=== PATIENT | male | born 1975 | race Caucasian/White ===

== ENCOUNTER 2017-02-12 23:09 | Emergency (ER) | payer SELFPAY ==
[2017-02-12 23:09] VITALS: BMI 23.4
[2017-02-12 23:16] VITALS: BP 148/93; PULSE 91; RESP 17; TEMP 98.5; O2SAT 96
--- NOTE | 2017-02-12 23:20 | ED PDOC ---
Arrival/HPI - General Time Seen by Provider: 02/12/17 23:16 Historian: Patient - History of Present Illness Narrative History of Present Illness (Text): 02/12/17 23:20 41 y/o male, pmh including pancreatitis, allergic to ciopro and penicillin, stated that he doesn't feel well and he call for the ambulance. Pt. stated that he had a can of beer tonight, doesn't feel well but feeling well now, no homicidal or suicidal ideation, no depression, no change in vision, no numbness or tingling, no rash, no abdominal pain, no chest pain or palpitation, no rash, no other medical or psychological complaints. Past Medical History - Provider Review Nursing Documentation Reviewed: Yes - Infectious Disease Hx of Infectious Diseases: None - Tetanus Immunization Tetanus Immunization: Unknown - Cardiac Hx Hypertension: No - Pulmonary Hx Respiratory Disorders: No - Neurological HX Cerebrovascular Accident: No Hx Seizures: No - HEENT Hx HEENT Disorder: No - Renal Hx Renal Disorder: No - Endocrine/Metabolic Hx Endocrine Disorders: No - Hematological/Oncological Hx Cancer: No Hx Hepatitis B: Yes - Integumentary Hx Dermatological Disorder: No - Musculoskeletal/Rheumatological Hx Musculoskeletal Disorders: No Hx Falls: No - Gastrointestinal Hx Gastrointestinal Disorders: No Hx Colostomy: No Hx Crohn's Disease: No Hx Diverticulitis: No Hx Gall Bladder Disease: No Hx Gastroesophageal Reflux: No Hx Gastrointestinal Ulcer: No Hx Ileostomy: No Hx Liver Failure: No Hx Pancreatitis: Yes HX Swallowing Problems: No - Genitourinary/Gynecological Hx Genitourinary Disorders: No Hx Reproductive Disorders: No - Psychiatric Hx Depression: No Hx Emotional Abuse: No Hx Physical Abuse: No Hx Substance Use: Yes - Surgical History Hx Cardiac Catheterization: No Hx Coronary Stent: No - Suicidal Assessment Feels Threatened In Home Enviroment: No Family/Social History - Physician Review Nursing Documentation Reviewed: Yes Family/Social History: Unknown Family HX Smoking Status: Current Some Days Smoker Hx Alcohol Use: No Hx Substance Use: Yes Hx Substance Use Treatment: No Allergies/Home Meds Allergies/Adverse Reactions: Allergies ciprofloxacin [From Cipro] Allergy (Verified 06/03/16 07:28) DIZZINESS ciprofloxacin HCl [From Cipro] Allergy (Verified 06/03/16 07:28) DIZZINESS Penicillins Allergy (Verified 06/03/16 07:28) ANAPHYLAXIS Review of Systems - Review of Systems Constitutional: absent: Fatigue, Fevers Eyes: absent: Vision Changes ENT: absent: Hearing Changes Respiratory: absent: SOB, Cough Cardiovascular: absent: Chest Pain Gastrointestinal: absent: Abdominal Pain, Diarrhea, Nausea, Vomiting Skin: absent: Rash, Pruritis Psychiatric: absent: Anxiety, Depression, Suicidal Ideation Physical Exam Vital Signs Reviewed: Yes Vital Signs Temp Pulse Resp BP Pulse Ox 02/12/17 23:15 98.5 F 91 H 17 148/93 H 96 Temperature: Afebrile Blood Pressure: Hypertensive Pulse: Regular Respiratory Rate: Normal Appearance: Positive for: Well-Appearing, Non-Toxic, Comfortable Pain Distress: None Mental Status: Positive for: Alert and Oriented X 3 - Systems Exam Head: Present: Atraumatic, Normocephalic Pupils: Present: PERRL Extroacular Muscles: Present: EOMI Conjunctiva: Present: Normal Mouth: Present: Moist Mucous Membranes Neck: Present: Normal Range of Motion Respiratory/Chest: Present: Clear to Auscultation, Good Air Exchange. No: Respiratory Distress, Accessory Muscle Use Cardiovascular: Present: Regular Rate and Rhythm, Normal S1, S2. No: Murmurs Abdomen: Present: Normal Bowel Sounds. No: Tenderness, Distention, Peritoneal Signs, Rebound, Guarding Back: Present: Normal Inspection Upper Extremity: Present: Normal Inspection. No: Cyanosis, Edema Lower Extremity: Present: Normal Inspection. No: Edema Neurological: Present: GCS=15, Speech Normal, Motor Func Grossly Intact, Gait Normal, Memory Normal Skin: Present: Warm, Dry, Normal Color. No: Rashes Psychiatric: Present: Alert, Oriented x 3, Normal Insight, Normal Concentration. No: Depressed Mood, Suicidal Ideation, Hallucinations Medical Decision Making ED Course and Treatment: 02/12/17 23:23 -Pt. has alcohol on breath, called the family member to come pick him up, will discharge home once the family member is here. -Pt. stated that he doesn't need any medication refill. -Pt. stated that he doesn't want any medical or psychological evaulation. 02/12/17 23:41 -Family is here, will discharge home. -Discharge home with education on follow up with your own pmd within 2 days, return to the ER for any new or worsening signs or symptoms. - PA / GUEST SERVICES AGENT / Resident Statement MD/DO has reviewed & agrees with the documentation as recorded. Disposition/Present on Arrival - Present on Arrival Any Indicators Present on Arrival: No History of DVT/PE: No History of Uncontrolled Diabetes: No Urinary Catheter: No History of Decub. Ulcer: No History Surgical Site Infection Following: None - Disposition Have Diagnosis and Disposition been Completed?: Yes Diagnosis: Alcohol intoxication Disposition: HOME/ ROUTINE Disposition Time: 23:41 Patient Plan: Discharge Condition: GOOD Additional Instructions: Discharge home with education on follow up with your own pmd within 2 days, return to the ER for any new or worsening signs or symptoms. Referrals: [facility] [place] - Follow up with primary Forms: WORK NOTE
== END 2017-02-12 23:45 | disposition home or self-care (01) ==
LOC: ED 23:09
DX: F10.129 Alcohol abuse with intoxication, unspecified (principal)

== ENCOUNTER 2017-04-04 18:54 | Emergency (ER) | payer SELFPAY ==
[2017-04-04 19:06] VITALS: TEMP 97.7; BMI 23.1
--- NOTE | 2017-04-04 19:23 | ED PDOC ---
Arrival/HPI - General Chief Complaint: Trauma Time Seen by Provider: 04/04/17 19:14 Historian: Patient - History of Present Illness Narrative History of Present Illness (Text): 04/04/17 19:18 41 y/o male, no significant pmh, allergic to ciprofloxacin, c/o lt. ankle/foot pain s/p fall from the ladder approx. 10 feet tall and landed on the left ankle and foot with inversion injury x 2 days. Aching pain, aggravated by walking and bearing weight, no calf pain, no numbness or tingling, no fever or chills, no neck or back pain, no facial or abdominal injury, no night sweat, eating and drinking well, no other medical or psychological complaints. Past Medical History - Provider Review Nursing Documentation Reviewed: Yes - Infectious Disease Hx of Infectious Diseases: None - Tetanus Immunization Tetanus Immunization: Unknown - Cardiac Hx Hypertension: No - Pulmonary Hx Respiratory Disorders: No - Neurological HX Cerebrovascular Accident: No Hx Seizures: No - HEENT Hx HEENT Disorder: No - Renal Hx Renal Disorder: No - Endocrine/Metabolic Hx Endocrine Disorders: No - Hematological/Oncological Hx Cancer: No Hx Hepatitis B: Yes - Integumentary Hx Dermatological Disorder: No - Musculoskeletal/Rheumatological Hx Musculoskeletal Disorders: No Hx Falls: No - Gastrointestinal Hx Gastrointestinal Disorders: No Hx Colostomy: No Hx Crohn's Disease: No Hx Diverticulitis: No Hx Gall Bladder Disease: No Hx Gastroesophageal Reflux: No Hx Gastrointestinal Ulcer: No Hx Ileostomy: No Hx Liver Failure: No Hx Pancreatitis: Yes HX Swallowing Problems: No - Genitourinary/Gynecological Hx Genitourinary Disorders: No Hx Reproductive Disorders: No - Psychiatric Hx Depression: No Hx Emotional Abuse: No Hx Physical Abuse: No Hx Substance Use: Yes - Surgical History Hx Cardiac Catheterization: No Hx Coronary Stent: No - Anesthesia Hx Anesthesia: No - Suicidal Assessment Feels Threatened In Home Enviroment: No Family/Social History - Physician Review Nursing Documentation Reviewed: Yes Family/Social History: Unknown Family HX Smoking Status: Current Some Days Smoker Hx Alcohol Use: Yes Frequency of alcohol use: Socially Hx Substance Use: Yes Hx Substance Use Treatment: No Allergies/Home Meds Allergies/Adverse Reactions: Allergies ciprofloxacin [From Cipro] Allergy (Verified 04/04/17 18:57) DIZZINESS ciprofloxacin HCl [From Cipro] Allergy (Verified 04/04/17 18:57) DIZZINESS Penicillins Allergy (Verified 04/04/17 18:57) ANAPHYLAXIS Review of Systems - Review of Systems Constitutional: absent: Fatigue, Fevers Eyes: absent: Vision Changes ENT: absent: Hearing Changes Respiratory: absent: SOB, Cough Cardiovascular: absent: Chest Pain Gastrointestinal: absent: Abdominal Pain, Nausea, Vomiting Musculoskeletal: Arthralgias. absent: Back Pain, Neck Pain, Joint Swelling, Myalgias Skin: absent: Rash, Pruritis, Skin Lesions Psychiatric: absent: Depression Physical Exam Vital Signs Reviewed: Yes Vital Signs Temp Pulse Resp BP Pulse Ox 04/04/17 18:59 97.7 F 78 18 151/98 H 100 Temperature: Afebrile Blood Pressure: Hypertensive Pulse: Regular Respiratory Rate: Normal Appearance: Positive for: Well-Appearing, Non-Toxic, Comfortable Pain Distress: Moderate Mental Status: Positive for: Alert and Oriented X 3 - Systems Exam Head: Present: Atraumatic, Normocephalic Pupils: Present: PERRL Extroacular Muscles: Present: EOMI Conjunctiva: Present: Normal Mouth: Present: Moist Mucous Membranes Neck: Present: Normal Range of Motion Respiratory/Chest: Present: Clear to Auscultation, Good Air Exchange. No: Respiratory Distress, Accessory Muscle Use Cardiovascular: Present: Regular Rate and Rhythm, Normal S1, S2. No: Murmurs Abdomen: Present: Normal Bowel Sounds. No: Tenderness, Distention, Peritoneal Signs Back: Present: Normal Inspection. No: CVA Tenderness, Midline Tenderness, Paraspinal Tenderness, Pain with Leg Raise, Decubitus Ulcer Upper Extremity: Present: Normal Inspection. No: Cyanosis, Edema Lower Extremity: Present: Normal Inspection, NORMAL PULSES, Normal ROM, Neurovascularly Intact, Other (LLE: +ttp on the lateral ankle region, negative ghassan and roger sign, skin intact, FROM without limitation, sensation intact , motor 5/5, negative ghassan and roger, +DPPT pulses, capillary refill< 2 second, neurovascular intact. ). No: Edema, Deformity Neurological: Present: GCS=15, CN II-XII Intact, Speech Normal Skin: Present: Warm, Dry, Normal Color. No: Rashes Psychiatric: Present: Alert, Oriented x 3, Normal Insight, Normal Concentration Medical Decision Making ED Course and Treatment: 04/04/17 19:24 -xrays -toradol 09/09/17 21:10 -Lt. ankle/foot/thoracic spine: no fracture/dislocation/subluxation -Pain improved, posterior applied for supportive treatment. -Discharge home with posterior splint, naproxen, crutches, ice compression, non- weight bearing, follow up with your own pmd and orthopedic within 2 days, return to the ER for any new or worsening signs or symptoms. - RAD Interpretation Radiology Orders: 04/04/17 19:15 ANKLE LEFT 3 VIEWS ROUTINE [RAD] Stat FOOT LEFT 3 VIEWS ROUTINE [RAD] Stat THORACIC SPINE [DORSAL (THORACIC) SPINE] [RAD] Stat Lt. ankle: TECHNIQUE: Frontal, lateral and oblique views of the left ankle. COMPARISON: There are no prior studies for comparison. FINDINGS: Bones/joints: There is no soft tissue swelling or soft tissue calcification. There is no effusion in the ankle joint. There are no fractures or dislocations. Bone mineralization is normal. Joint spaces are maintained. Soft tissues: see above IMPRESSION: No fracture Thank you for allowing us to participate in the care of your patient. Dictated and Authenticated by: Letitia Carcamo MD 04/04/2017 9:03 PM Eastern Time ([employer]) Lt. foot: TECHNIQUE: Frontal, lateral and oblique views of the left foot. COMPARISON: There are no prior studies for comparison. FINDINGS: Bones/joints: There is no soft tissue swelling or soft tissue calcification. There is no effusion in the ankle joint. There are no fractures or dislocations. Bone mineralization is normal. Joint spaces are maintained. Soft tissues: see above IMPRESSION: No fracture Thank you for allowing us to participate in the care of your patient. Dictated and Authenticated by: Letitia Carcamo MD 04/04/2017 9:00 PM Eastern Time ([employer]) Thoracic Spine: TECHNIQUE: Frontal and lateral views of the thoracic spine. COMPARISON: There are no prior studies for comparison. FINDINGS: Vertebrae: Cervicothoracic junction is not optimally demonstrated on the lateral view. Visualized vertebral bodies are normal in height. There are early degenerative changes in the mid thoracic spine greatest at T8-9. There are small osteophytes. Disc spaces are maintained. Pedicles are intact bilaterally.Spinous processes align in the expected fashion. Disc spaces: See above Lungs: Visualized heart and lungs are unremarkable Soft tissues: see above. IMPRESSION: Minimal spondylosis, no fracture seen Thank you for allowing us to participate in the care of your patient. Dictated and Authenticated by: Letitia Carcamo MD 04/04/2017 9:11 PM Eastern Time ([place] & [place]) Religious Education Teacher: Radiologist - Medication Orders Current Medication Orders: Discontinued Medications Ketorolac Tromethamine (Toradol) 60 mg IM STAT STA Stop: 04/04/17 19:16 Last Admin: 04/04/17 19:54 Dose: Not Given Non-Admin Reason: Patient Refused - PA / COOKER LOADER / Resident Statement MD/DO has reviewed & agrees with the documentation as recorded. Disposition/Present on Arrival - Present on Arrival Any Indicators Present on Arrival: No History of DVT/PE: No History of Uncontrolled Diabetes: No Urinary Catheter: No History of Decub. Ulcer: No History Surgical Site Infection Following: None - Disposition Have Diagnosis and Disposition been Completed?: Yes Diagnosis: Accidental fall, Ankle injury, Ankle pain Disposition: HOME/ ROUTINE Disposition Time: 19:25 Patient Plan: Discharge Patient Problems: Current Active Problems Problem Status Onset Accidental fall Acute Ankle injury Acute Ankle pain Acute Condition: IMPROVED Additional Instructions: -Discharge home with posterior splint, naproxen, crutches, ice compression, non- weight bearing, follow up with your own pmd and orthopedic within 2 days, return to the ER for any new or worsening signs or symptoms. Prescriptions: Naproxen 500 mg PO BID PRN #20 tab PRN Reason: Other Referrals: Carter Wooten MD [Primary Care Provider] - Follow up with primary Chao Mcallister III, MD [Medical Doctor] - Follow up with primary Chemo De La Fuente DPM [Staff Provider] - Follow up with primary Forms: [employer] (Mauritian), WORK NOTE
--- NOTE | 2017-04-04 21:00 | RAD ---
EXAM: XR Left Foot Complete, 3 or More Views EXAM DATE/TIME: 04/04/2017 7:15 PM\par CLINICAL HISTORY: 41 years old, male; Injury or trauma; Fall; Initial encounter; Blunt trauma; Ankle and foot; Left; Additional info: Lt. Ankle injury, fall TECHNIQUE: Frontal, lateral and oblique views of the left foot. COMPARISON: There are no prior studies for comparison. FINDINGS: Bones/joints: There is no soft tissue swelling or soft tissue calcification. There is no effusion in the ankle joint. There are no fractures or dislocations. Bone mineralization is normal. Joint spaces are maintained. Soft tissues: see above IMPRESSION: No fracture
--- NOTE | 2017-04-04 21:04 | RAD ---
EXAM: XR Left Ankle Complete, 3 or More Views EXAM DATE/TIME: 04/04/2017 7:15 PM CLINICAL HISTORY: 41 years old, male; Pain; Ankle and foot; Left; Additional info: Lt. Ankle injury, fall TECHNIQUE: Frontal, lateral and oblique views of the left ankle. COMPARISON: There are no prior studies for comparison. FINDINGS: Bones/joints: There is no soft tissue swelling or soft tissue calcification. There is no effusion in the ankle joint. There are no fractures or dislocations. Bone mineralization is normal. Joint spaces are maintained. Soft tissues: see above IMPRESSION: No fracture
--- NOTE | 2017-04-04 21:11 | RAD ---
EXAM: XR Thoracic Spine, 2 Views EXAM DATE/TIME: 04/04/2017 7:15 PM CLINICAL HISTORY: 41 years old, male; Injury or trauma; Fall; Initial encounter; Blunt trauma (contusions or hematomas) TECHNIQUE: Frontal and lateral views of the thoracic spine. COMPARISON: There are no prior studies for comparison. FINDINGS: Vertebrae: Cervicothoracic junction is not optimally demonstrated on the lateral view. Visualized vertebral bodies are normal in height. There are early degenerative changes in the mid thoracic spine greatest at T8-9. There are small osteophytes. Disc spaces are maintained. Pedicles are intact bilaterally.Spinous processes align in the expected fashion. Disc spaces: See above Lungs: Visualized heart and lungs are unremarkable Soft tissues: see above IMPRESSION: Minimal spondylosis, no fracture seen
[2017-04-04 21:28] VITALS: BP 140/85; PULSE 72; RESP 17; O2SAT 99
== END 2017-04-04 21:32 | disposition home or self-care (01) ==
LOC: ED 18:54
DX: S99.912A Unspecified injury of left ankle, initial encounter (principal); W11.XXXA Fall on and from ladder, initial encounter; Y93.89 Activity, other specified; Y92.89 Other specified places as the place of occurrence of the external cause; Y99.0 Civilian activity done for income or pay

== ENCOUNTER 2018-02-08 21:00 | Emergency (ER) | payer SELFPAY ==
[2018-02-08 21:15] VITALS: BMI 22.4
[2018-02-08 21:20] VITALS: RESP 18; O2SAT 99
[2018-02-08] MEDS ORDERED: Naproxen 550 mg Tab PO STA (21:53)
--- NOTE | 2018-02-08 21:57 | ED PDOC ---
Arrival/HPI <MaryHemal greenberg - Last Filed: 02/08/18 22:57> - General Historian: Patient, Spouse - History of Present Illness Time/Duration: Other (see hpi) Context: Home <Fina Marshall - Last Filed: 02/10/18 20:22> - General Chief Complaint: Lower Extremity Problem/Injury Time Seen by Provider: 02/08/18 21:52 - History of Present Illness Narrative History of Present Illness (Text): 02/08/18 21:52 This 42 yo male presents to this ED c/o right lateral malleoulus pain x 7 days. Patient stated that he had a fall at work last year. Patient stated he fracture his left ankle, but he has been having intermittent right ankle pain since the fall. Patient denies other complains. (Fina Marshall) Past Medical History - Provider Review Nursing Documentation Reviewed: Yes - Infectious Disease Hx of Infectious Diseases: None - Tetanus Immunization Tetanus Immunization: Unknown - Cardiac Hx Hypertension: No - Pulmonary Hx Respiratory Disorders: No - Neurological HX Cerebrovascular Accident: No Hx Seizures: No - HEENT Hx HEENT Disorder: No - Renal Hx Renal Disorder: No - Endocrine/Metabolic Hx Endocrine Disorders: No - Hematological/Oncological Hx Cancer: No Hx Hepatitis B: Yes - Integumentary Hx Dermatological Disorder: No - Musculoskeletal/Rheumatological Hx Musculoskeletal Disorders: No Hx Falls: No - Gastrointestinal Hx Gastrointestinal Disorders: No Hx Colostomy: No Hx Crohn's Disease: No Hx Diverticulitis: No Hx Gall Bladder Disease: No Hx Gastroesophageal Reflux: No Hx Gastrointestinal Ulcer: No Hx Ileostomy: No Hx Liver Failure: No Hx Pancreatitis: Yes HX Swallowing Problems: No - Genitourinary/Gynecological Hx Genitourinary Disorders: No Hx Reproductive Disorders: No - Psychiatric Hx Depression: No Hx Emotional Abuse: No Hx Physical Abuse: No Hx Substance Use: Yes - Surgical History Hx Cardiac Catheterization: No Hx Coronary Stent: No - Anesthesia Hx Anesthesia: No - Suicidal Assessment Feels Threatened In Home Enviroment: No <Fina Marshall - Last Filed: 02/10/18 20:22> Family/Social History - Physician Review Nursing Documentation Reviewed: Yes Family/Social History: Other (noncontributory) Smoking Status: Current Some Days Smoker Hx Alcohol Use: Yes Hx Substance Use: Yes Hx Substance Use Treatment: No <Fina Marshall - Last Filed: 02/10/18 20:22> Allergies/Home Meds <Hemal Hernandez - Last Filed: 02/08/18 22:57> <Fina Marshall Callie - Last Filed: 02/10/18 20:22> Allergies/Adverse Reactions: Allergies ciprofloxacin [From Cipro] Allergy (Verified 04/04/17 18:57) DIZZINESS ciprofloxacin HCl [From Cipro] Allergy (Verified 04/04/17 18:57) DIZZINESS Penicillins Allergy (Verified 04/04/17 18:57) ANAPHYLAXIS Review of Systems - Review of Systems Constitutional: Normal. absent: Fatigue, Weight Change, Fevers Eyes: Normal ENT: Normal Respiratory: Normal Cardiovascular: Normal Gastrointestinal: Normal Genitourinary Male: Normal Musculoskeletal: Other ((+) right ankle pain) Skin: Normal Neurological: Normal Endocrine: Normal Hemo/Lymphatic: Normal Psychiatric: Normal <MarshallFina bravo P - Last Filed: 02/10/18 20:22> Physical Exam Temperature: Afebrile Blood Pressure: Normal Pulse: Regular Respiratory Rate: Normal Appearance: Positive for: Well-Appearing, Non-Toxic, Comfortable Pain Distress: None Mental Status: Positive for: Alert and Oriented X 3 - Systems Exam Head: Present: Atraumatic, Normocephalic Neck: Present: Normal Range of Motion Upper Extremity: Present: Normal Inspection, Normal ROM Lower Extremity: Present: Normal Inspection, NORMAL PULSES, Normal ROM, Tenderness ((+) mild right lateral malleoulus tenderness.), Neurovascularly Intact, Capillary Refill < 2 s, Other (No posterior ankle tenderness. No calf tenderness. Nunez test was negative). No: Edema, CALF TENDERNESS, Swelling , Erythema, Temperature Abnormalties Neurological: Present: GCS=15, CN II-XII Intact, Speech Normal, Motor Func Grossly Intact, Normal Sensory Function, Normal Cerebellar Funct Skin: Present: Warm, Dry, Normal Color. No: Rashes Psychiatric: Present: Alert, Oriented x 3, Normal Insight, Normal Concentration <Fina Marshall - Last Filed: 02/10/18 20:22> Vital Signs Temp Pulse Resp BP Pulse Ox 02/08/18 23:28 98.2 F 75 18 130/71 99 02/08/18 21:19 98.3 F 79 18 128/66 99 Medical Decision Making <Mary,Hemal - Last Filed: 02/08/18 22:57> Re-evaluation Time: 23:19 Reassessment Condition: Re-examined, Improved <Fina Marshall - Last Filed: 02/10/18 20:22> ED Course and Treatment: 02/08/18 23:19 Re-evaluation. Patient feels better. Discussed results and plan with patient who expresses understanding. All questions answered and there is agreement with the plan to discharge home with instructions. Patient stable for discharge. Return if symptoms persist or worsen (Fina Marshall) - RAD Interpretation Narrative RAD Interpretations (Text): 02/08/18 23:20 Ankle x-rays: No Fx (Fina Marshall) Radiology Orders: 02/08/18 21:53 ANKLE RIGHT 3 VIEWS ROUTINE [RAD] Stat - Medication Orders Current Medication Orders: Discontinued Medications Naproxen (Anaprox Ds) 550 mg PO STAT STA Stop: 02/08/18 21:54 Last Admin: 02/08/18 22:10 Dose: Not Given Non-Admin Reason: Patient Refused - PA / DIRECTOR OF RESPIRATORY THERAPY / Resident Statement / has reviewed & agrees with the documentation as recorded. <MaryHemal - Last Filed: 02/08/18 22:57> Disposition/Present on Arrival <MaryHemal - Last Filed: 02/08/18 22:57> - Present on Arrival Any Indicators Present on Arrival: No History of DVT/PE: No History of Uncontrolled Diabetes: No Urinary Catheter: No History of Decub. Ulcer: No History Surgical Site Infection Following: None - Disposition Have Diagnosis and Disposition been Completed?: Yes Disposition Time: 23:20 Patient Plan: Discharge <Fina Marshall - Last Filed: 02/10/18 20:22> - Disposition Diagnosis: Ankle pain, right Disposition: HOME/ ROUTINE Condition: GOOD Discharge Instructions (ExitCare): Ankle Sprain (DC) Additional Instructions: Call private doctor or podiatry clinic for follow up visit in 1-2 days. Take medication as instructed with food. keep foot elevated, ice, rest, andrea bandage , crutches for at least 7 days. Return to emergency if pain worsen. Remove andrea bandage at bedtime. Prescriptions: Famotidine [Pepcid] 40 mg PO DAILY #10 tablet Naproxen 500 mg PO BID PRN #14 tablet PRN Reason: Pain, Severe (8-10) Referrals: [facility] [Outside] - Follow up with primary Podiatry Clinic [Outside] - Follow up with primary Mariann Kahn MD [Staff Provider] - Follow up with primary Forms: [employer] ([place]), WORK NOTE
[2018-02-09 00:31] VITALS: BP 130/71; PULSE 75; TEMP 98.2
--- NOTE | 2018-02-09 08:47 | RAD ---
Date of service: 02/08/2018 PROCEDURE: Right Ankle Radiographs. HISTORY: Pain COMPARISON: None FINDINGS: BONES: Bone alignment and mineralization are normal. There is no acute displaced fracture or bone destruction. JOINTS: Normal. Ankle mortise maintained. Talar dome intact SOFT TISSUES: Normal. OTHER FINDINGS: None. IMPRESSION: No acute fracture or dislocation.
== END 2018-02-08 23:28 | disposition home or self-care (01) ==
LOC: ED 21:00
DX: M25.571 Pain in right ankle and joints of right foot (principal)

== ENCOUNTER 2018-03-23 23:14 | Emergency (ER) | payer SELFPAY ==
[2018-03-23 23:15] VITALS: BMI 22.4
== END 2018-03-24 00:30 | disposition left against medical advice (07) ==
LOC: ED 23:14
DX: Z02.89 Encounter for other administrative examinations (principal); R50.9 Fever, unspecified